=== PATIENT | female | born 1960 | race Caucasian/White ===

== ENCOUNTER 2017-05-23 05:31 | Day surgery (SDC) | payer BC ==
[2017-05-21 10:35] VITALS: BMI 27.1
[2017-05-23] MEDS ORDERED: BUPIVACAINE HCL/PF 0.5% (5MG/ML) 10 ML VIAL IJ ONE (08:10)
[2017-05-23] MEDS ORDERED: BUPIVACAINE HCL/PF 0.5% (5MG/ML) 10 ML VIAL ONE (08:15)
[2017-05-23] MEDS ORDERED: ceFAZolin SODIUM 1 GM VIAL IVPB ONE (08:20)
[2017-05-23] MEDS ORDERED: PROMETHAZINE HCL 25 MG/1 ML VIAL IVPUSH PRN (10:54)
[2017-05-23] MEDS ORDERED: ONDANSETRON 4 MG/2 ML VIAL IVPUSH PRN ×2 (10:54→17:56)
[2017-05-23] MEDS ORDERED: HYDROmorphone HCL CARPU-JECT 2 MG/1 ML DISP.SYRIN ONE (12:19)
[2017-05-23] MEDS: HYDROmorphone HCL CARPU-JECT 1 MG/1 ML DISP.SYRIN IVPUSH PRN ×4 (12:23→13:20)
[2017-05-23] MEDS ORDERED: BISACODYL 10 MG SUPP.RECT RC PRN (12:40)
[2017-05-23] MEDS: LACTATED RINGERS SOLUTION 1,000 ML IV SCH (13:00)
[2017-05-23] MEDS ORDERED: oxyCODONE HCL 5 MG TABLET PO PRN (13:04)
[2017-05-23] MEDS ORDERED: ACETAMINOPHEN 325 MG TABLET (FP) PO PRN (13:04)
--- NOTE | 2017-05-23 13:14 | OP ---
DATE OF OPERATION: 05/23/2017 PREOPERATIVE DIAGNOSES: Postmenopausal bleeding. OPERATION: Laparoscopic robotic total hysterectomy and bilateral salpingectomy. SURGEON: Sharita Amor MD FLAME PLANER: Catrachita Mcintyre DO ANESTHESIA: General. ANESTHESIOLOGIST: Cheli Domingo MD FINDINGS: Uterus about 8 cm in size with cervix located around the external cervical os. INDICATION FOR SURGERY: Patient is a 56-year-old who came in complaining of irregular postmenopausal bleeding. DESCRIPTION OF PROCEDURE: Patient was taken to the operating room, placed in dorsal lithotomy position, prepped and draped in the usual sterile fashion. A timeout was performed in accordance with hospital regulation. Gauthier catheter was inserted into the bladder, and the VCare device was inserted around the cervix and in the endometrium. Attention was then drawn to the umbilicus where an 8-mm umbilical incision was made. Veress needle was inserted into the cavity. Approximately 3-4 L of CO2 were insufflated into the cavity. Veress needle was then removed, and an 8-mm trocar was then inserted. Laparoscope and camera were attached. Deep Trendelenburg was placed. Two trocars were placed on the left side, one parallel to the umbilicus about 10 cm away from the umbilicus and another one in the left upper abdomen, AirSeal cannula. Two trocars were then placed on the right parallel to the umbilicus under direct visualization. The da David robot was side docked to the patient's side. Trocars were then inserted. Laparoscope and camera were attached. Trocars were placed in position, and instruments were then placed under direct proximity to the uterus. Vessel sealer was placed on the left, and EndoShears and tenaculum were placed on the right. After all instruments were placed and steep Trendelenburg had been given , the control of the da David robot was then done at the console. Tenaculum was then used to elevate the uterus, and the utero-ovarian ligament was clamped and cut using vessel sealer. Uterine artery on the right was clamped and cut. Cardinal ligaments and broad ligaments were then identified and clamped and cut. Vesicouterine reflection was then entered, and bladder was bluntly dissected out of the operative field. EndoShears were then used to cut the vagina away from the cervix. Attention was then drawn to the left side where utero-ovarian artery was identified and clamped and cut. Uterine artery was identified and clamped and cut. Vesicouterine reflection had been cut, and bladder was bluntly dissected out of the operative field. Cardinal ligaments and broad ligament were identified and clamped and cut down to the level of the cervix. A cervical myoma was noted on the left side, and the bipolar grasper was then used to coagulate some bleeding which was noted on the left side. Ureters identified and found to have peristalsis. Vagina was then cut away from the cervix using the EndoShears. The uterus and cervix were then removed from the vagina. The 2-0 V-Loc suture was then passed through the vagina, and vaginal cuff was then closed using continuous stitch using 2-0 V-Loc suture. Hemostasis was achieved after cuffs had been sewn. Ureters were both identified and found to have peristalsis. The tubes were grasped and cut using vessel sealer and removed. Hemostasis was achieved. Ovaries were noted to be normal. Some omental adhesions were noted on the left. All instruments were then removed after hemostasis was achieved, after needle had been removed from the abdomen and tubes were removed from the abdomen. CO2 was removed from the belly, and incisions were then closed using 4-0 Biosyn suture in subcuticular fashion. Wound was washed and dressed. Patient tolerated the procedure well. Estimated blood loss was 100 mL. Pack count was noted to be normal. Mariam [id number] MTDD
[2017-05-23 17:58] LABS: MCHC 33.5 g/dl (32.0-36.0); MEAN CELL VOLUME 86.5 fl (80-96); MEAN PLT VOLUME 8.5 fl (7.5-11.1); PLATELET COUNT 228 K/MM3 (134-434); RDW 13.8 % (11.6-15.6); WHITE BLOOD COUNT 17.8 K/mm3 (4.0-10.0)
[2017-05-23] MEDS: CEFAZOLIN 2 GM/D5W 50 ML IVPB SCH (18:26)
[2017-05-23 18:38] LABS: ANION GAP 14 (8-16); CALCIUM 8.8 mg/dL (8.5-10.1); CO2 24 mmol/L (21-32); GLUCOSE,RANDOM 216 mg/dL (74-106)
[2017-05-23] MEDS ORDERED: ONDANSETRON 4 MG/2 ML VIAL IVPB PRN (18:42)
[2017-05-23] MEDS: IBUPROFEN 800 MG/8 ML IJ IVPB PRN (20:01)
[2017-05-24] MEDS: CEFAZOLIN 2 GM/D5W 50 ML IVPB SCH (01:47)
[2017-05-24 07:35] LABS: MCH 29.5 pg (25.7-33.7); MCHC 34.7 g/dl (32.0-36.0); MEAN CELL VOLUME 84.8 fl (80-96); MEAN PLT VOLUME 8.3 fl (7.5-11.1); PLATELET COUNT 183 K/MM3 (134-434); WHITE BLOOD COUNT 15.6 K/mm3 (4.0-10.0)
[2017-05-24 07:57] LABS: ANION GAP 10 (8-16); CALCIUM 8.4 mg/dL (8.5-10.1); CO2 27 mmol/L (21-32); CREATININE 1.1 mg/dL (0.55-1.02); GLUCOSE,RANDOM 114 mg/dL (74-106)
[2017-05-24] MEDS: IBUPROFEN 800 MG/8 ML IJ IVPB PRN (08:22)
--- NOTE | 2017-05-24 09:34 | PN ---
Progress Note, Physician Chief Complaint: Pt seen/evaluated and doing well. Pain controlled with medications. Gauthier catheter draining clear yellow urine. Tolerating regular diet. Denies CP/SOB/F /C/MULTANI. No complaints today. Had pink tinged urine overnight, Cr 1.1 this a.m. - Current Medication List Current Medications: Active Medications Acetaminophen (Tylenol -) 650 mg PO Q6H PRN PRN Reason: PAIN LEVEL 6-10 Bisacodyl (Dulcolax Suppository -) 10 mg RC PRN PRN PRN Reason: CONSTIPATION Enoxaparin Sodium (Lovenox -) 40 mg SQ DAILY [facility] Fentanyl (Sublimaze Injection -) 25 mcg IVPUSH [id number] PRN PRN Reason: PAIN Stop: 05/26/17 10:55 Hydromorphone HCl (Dilaudid Injection -) 0.5 mg IVPUSH [id number] PRN PRN Reason: PAIN Stop: 05/26/17 10:55 Last Admin: 05/23/17 13:20 Dose: 0.5 mg Hydromorphone HCl (Dilaudid -) 4 mg PO Q4H PRN PRN Reason: PAIN Lactated Ringer's (Lactated Ringers Solution) 1,000 mls @ 125 mls/hr IV ASDIR BATSHEVA Last Admin: 05/23/17 13:00 Dose: 200 mls Ibuprofen (Caldolor Injection -) 800 mg IVPB Q6H PRN PRN Reason: FEVER Last Admin: 05/24/17 08:22 Dose: 800 mg Oxycodone HCl (Roxicodone -) 10 mg PO Q6H PRN PRN Reason: PAIN LEVEL 6-10 - Objective Vital Signs: Vital Signs Temperature 98.2 F 05/24/17 06:00 Pulse Rate 84 05/24/17 06:00 Respiratory Rate 18 05/24/17 06:00 Blood Pressure 92/50 05/24/17 06:00 O2 Sat by Pulse Oximetry (%) 95 05/23/17 15:20 Constitutional: Yes: Well Nourished, No Distress, Calm Eyes: Yes: Conjunctiva Clear, EOM Intact HENT: Yes: Atraumatic, Normocephalic Neck: Yes: Supple, Trachea Midline Cardiovascular: Yes: Regular Rate and Rhythm Respiratory: Yes: Regular, CTA Bilaterally Gastrointestinal: Yes: Normal Bowel Sounds, Soft. No: Palpable Mass, Tenderness Genitourinary: Yes: Gauthier Present. No: Vaginal Bleeding Extremities: Yes: WNL Edema: No Wound/Incision: Yes: Clean/Dry, Well Approximated Neurological: Yes: Alert, Oriented Psychiatric: Yes: Alert, Oriented Labs: CBC, BMP 05/24/17 06:00 05/24/17 06:00 Problem List - Problems (1) S/P robot-assisted surgical procedure Code(s): Z98.890 - OTHER SPECIFIED POSTPROCEDURAL STATES (2) History of robot-assisted laparoscopic hysterectomy Code(s): Z90.710 - ACQUIRED ABSENCE OF BOTH CERVIX AND UTERUS Assessment/Plan 56 y/o POD#1 s/p Robotic assisted TLH and b/l salpingectomy - AFVSS - continue PO pain meds - Pt eating regualr diet - will restart home DM meds - DM/HTN - to restart home meds today, BP stable, BGM elevated overnight, will continue to monitor - Pt with hematuria and elevated Cr last night, repeat Cr today. If pt able to tolerate diet, void, pass flatus and Cr stable will d/c home
[2017-05-24] MEDS ORDERED: ENOXAPARIN NA (PORCINE) 40 MG/0.4 ML DISP.SYRIN SQ SCH (10:00)
[2017-05-24] MEDS ORDERED: PATIENT'S OWN MEDICATION (NON-FORMULARY) (Linagliptin [Tradjenta] 5 MG) PO SCH (10:00)
[2017-05-24] MEDS: LACTATED RINGERS SOLUTION 1,000 ML IV SCH (10:50)
[2017-05-24] MEDS ORDERED: sitaGLIPtin PHOSPHATE 100 MG TABLET (FP) PO SCH (11:00)
--- NOTE | 2017-05-24 11:44 | PN ---
Progress Note (short form) - Note Progress Note: Anesthesia POD#1 S/P Robotic MAR under GA vss,no N/V, pain is under control. Eating well. No complications to anesthesia seen. Melanie Taylor MD
[2017-05-24 11:54] VITALS: BP 112/53; PULSE 87; TEMP 98.8
[2017-05-24 12:44] LABS: ANION GAP 11 (8-16); CALCIUM 8.9 mg/dL (8.5-10.1); CO2 27 mmol/L (21-32); CREATININE 1.4 mg/dL (0.55-1.02); GLUCOSE,RANDOM 163 mg/dL (74-106)
--- NOTE | 2017-05-24 13:37 | PATH ---
Surgical Pathology Report Patient Name: STANLEY SHEN [facility]. Rec. #: [id number] /Age/Gender: 1960 (Age: 56) / F Account: [id number] Location: AMBULATORY SURG Taken: 05/23/2017 Received: 05/23/2017 Reported: 05/24/2017 Physicians: Sharita Amor M.D. Specimen(s) Received A: UTERUS AND CERVIX B: LEFT FALLOPIAN TUBE C: RIGHT FALLOPIAN TUBE Clinical History Irregular bleeding Final Diagnosis A. UTERUS AND CERVIX, HYSTERECTOMY: UTERUS AND CERVIX, 58 GRAMS, WITH 3 LEIOMYOMATA, SUPERFICIAL ADENOMYOSIS, UTERINE SEROSAL ENDOMETRIOSIS, INACTIVE ENDOMETRIUM, AND CERVIX WITH CHRONIC INFLAMMATION. B. LEFT FALLOPIAN TUBE, SALPINGECTOMY: BENIGN FALLOPIAN TUBE INCLUDING FIMBRIATED END, WITH BENIGN SEROUS PARATUBAL CYST. C. RIGHT FALLOPIAN TUBE, SALPINGECTOMY: BENIGN FALLOPIAN TUBE INCLUDING FIMBRIATED END. Electronically Signed Addy Gibson M.D. Gross Description A. Received in formalin labeled "uterus and cervix," is a 58 g uterus with an attached cervix and no attached adnexa. The specimen measures 7.8 cm from superior to inferior, 4.4 cm from left to right and 3.0 cm from anterior to posterior. The serosa is lundberg-pink and smooth. The attached cervix measures 3 cm in length and 2.8 cm in diameter. The ectocervix is pink-lundberg, smooth and glistening. The endocervix is unremarkable. The endometrial cavity measures 3.5 cm in length and 2 cm from cornu to cornu. The there is a bulging submucosal nodule present at the anterior fundus, measuring 1.4 cm in greatest dimension. The endometrium is lundberg-red and averages 0.1 cm in thickness. The myometrium displays 2 intramural nodules measuring 0.4 and 1.6 cm in greatest dimension. The cut surface of the submucosal and intramural nodules is lundberg, firm to rubbery and displays whorled architecture. No areas of hemorrhage or necrosis are identified. The remaining myometrium is lundberg-pink and averages 1.3 cm in thickness. Stock Letterer sections are submitted in 7 cassettes as follows: 1-anterior cervix; 2-posterior cervix; 3-anterior endomyometrium; 5-3-eoltszohp endomyometrium; 6-submucosal nodule; 7-intramural nodules. B. Received in formalin labeled "left tube," is a 3 cm in length fimbriated fallopian tube. The outer surface is lundberg-pink with a focal 0.6 cm greatest dimension paratubal cyst attached. Sectioning reveals an unremarkable lumen. Stock Letterer sections are submitted in 2 cassettes as follows: 1-fimbria; 2-cross sections of fallopian tube and paratubal cyst. C. Received in formalin labeled "right tube," is a 3 cm in length fimbriated fallopian tube. The outer surface is lundberg-pink and smooth. Sectioning reveals an unremarkable lumen. Stock Letterer sections are submitted in 2 cassettes as follows: 1-fimbria; 2-cross sections of fallopian tube. 05/23/2017 [facility] with [facility]05/23/2017
[2017-05-24] MEDS ORDERED: ATORVASTATIN CA 20 MG TABLET (FP) PO SCH (22:00)
[2017-05-24] MEDS ORDERED: LISINOPRIL 5 MG TABLET (FP) PO SCH (22:00)
== END 2017-05-24 13:03 | disposition home or self-care (01) ==
LOC: JASUSAT 05:31 → J3W 14:55 → JASUSAT 05-24 13:03
PROVIDERS: ATTEND Obstetrics & Gynecology
PROC: 0UT7FZZ Resection of Bilateral Fallopian Tubes, Via Natural or Artificial Opening With Percutaneous Endoscopic Assistance (ICD-10-PCS; 2017-05-23)
PROC: 8E0W4CZ Robotic Assisted Procedure of Trunk Region, Percutaneous Endoscopic Approach (ICD-10-PCS; 2017-05-23)
PROC: 0UT9FZZ Resection of Uterus, Via Natural or Artificial Opening With Percutaneous Endoscopic Assistance (ICD-10-PCS; principal; 2017-05-23 08:00)
PROC: 0UTC7ZZ Resection of Cervix, Via Natural or Artificial Opening (ICD-10-PCS; 2017-05-23 08:00)
DX: N95.0 Postmenopausal bleeding (principal); N80.0 Endometriosis of uterus; D25.9 Leiomyoma of uterus, unspecified
CPT/HCPCS: 58552; S2900; 36415; 80048; 85027; 86850; 86900; 86901; 88302-TC; 88307-TC; 94010; 94760

== ENCOUNTER 2017-05-28 16:14 | Inpatient (IN) | payer BC ==
[2017-05-28 16:23] VITALS: BMI 23.9
--- NOTE | 2017-05-28 16:50 | PDOC ---
Attending Attestation - Resident Resident Name: Florentino Kay - ED Attending Attestation I have performed the following: I have examined & evaluated the patient, The case was reviewed & discussed with the resident, I agree w/resident's findings & plan, Exceptions are as noted - HPI HPI: 05/28/17 16:48 flank pain, ureter tied off during hysterectomy - Physicial Exam PE: 05/28/17 16:49Appears Uncomfortable - Medical Decision Making 05/28/17 16:[address] Kay Assessment and Plan
--- NOTE | 2017-05-28 17:15 | PDOC ---
History of Present Illness - General Chief Complaint: Back Pain Stated Complaint: POST-OP PAIN Time Seen by Provider: 05/28/17 16:35 History Source: Patient Exam Limitations: No Limitations - History of Present Illness Initial Comments: 05/28/17 17:12 Patient is a 56F with history of DM, HTN and HLD is here today for a post-op complication. The patient had a hysterectomy and experienced left sided pain afterwards. A CT scan done today as an outpatient shows left sided hydronephrosis with an obstruction in the ureter. Patient says that she has had some left sided flank, but this has resolved with taking oxycodone. She denies fevers, chills, nausea and vomiting. She denies chest pain, shortness of breath , abdominal pain and cough. Past History - Past Medical History Allergies/Adverse Reactions: Allergies Allergy/AdvReac Type Severity Reaction Status Date / Time No Known Drug Allergies Allergy Verified 05/28/17 18:46 Home Medications: Ambulatory Orders Atorvastatin Ca [Lipitor] 20 mg PO HS 05/15/17 Linagliptin [Tradjenta] 5 mg PO DAILY 05/15/17 Lisinopril 5 mg PO HS 05/15/17 Metformin HCl [Metformin HCl ER] 1,000 mg PO BID 05/15/17 Oxycodone HCl/Acetaminophen [Percocet 5-325 mg Tablet -] 1 tab PO Q4H #20 tablet [facility] 6 05/23/17 Ibuprofen [Motrin -] 600 mg PO QID PRN #28 tablet 05/24/17 Oxycodone HCl/Acetaminophen [Percocet 5-325 mg Tablet -] 1 tab PO Q4H #20 tablet [facility] 6 05/24/17 Anemia: No Asthma: No Cancer: No Cardiac Disorders: No CVA: No COPD: No CHF: No Dementia: No Diabetes: Yes GI Disorders: No Disorders: No HTN: Yes Hypercholesterolemia: Yes Liver Disease: No Seizures: No Thyroid Disease: No - Immunization History Immunization Up to Date: Yes - Suicide/Smoking/Psychosocial Hx Smoking History: Never smoked Have you smoked in the past 12 months: No Information on smoking cessation initiated: No Hx Alcohol Use: No Drug/Substance Use Hx: No Substance Use Type: Alcohol Hx Substance Use Treatment: No Review of Systems - Review of Systems Comments:: 05/28/17 17:17 GENERAL/CONSTITUTIONAL: No fever or chills. No weakness. HEAD, EYES, EARS, NOSE AND THROAT: No change in vision. No sore throat. CARDIOVASCULAR: No chest pain or shortness of breath RESPIRATORY: No cough, wheezing, or hemoptysis. GASTROINTESTINAL: No nausea, vomiting, diarrhea or constipation. GENITOURINARY: No dysuria, frequency, or change in urination. MUSCULOSKELETAL: No joint or muscle swelling or pain. No neck or back pain. SKIN: No rash NEUROLOGIC: No headache, vertigo, loss of consciousness, or change in strength/ sensation. ALLERGIC/IMMUNOLOGIC: No hives or skin allergy. *Physical Exam - Vital Signs Last Vital Signs Temp Pulse Resp BP Pulse Ox 98.0 F 85 17 130/69 100 05/28/17 16:18 05/28/17 16:18 05/28/17 16:18 05/28/17 16:18 05/28/17 16:18 - Physical Exam Comments: 05/28/17 17:17 GENERAL: Awake, alert, and fully oriented, in no acute distress HEAD: No signs of trauma, normocephalic, atraumatic EYES: PERRLA, EOMI, sclera anicteric, conjunctiva clear ENT: Auricles normal inspection, hearing grossly normal, nares patent, oropharynx clear without exudates. Moist mucosa NECK: Normal ROM, supple, no lymphadenopathy, JVD, or masses LUNGS: No distress, speaks full sentences, clear to auscultation bilaterally HEART: Regular rate and rhythm, normal S1 and S2, no murmurs, rubs or gallops, peripheral pulses normal and equal bilaterally. ABDOMEN: Soft, left sided flank tenderness, normoactive bowel sounds. No guarding, no rebound. No masses EXTREMITIES: Normal inspection, Normal range of motion, no edema. No clubbing or cyanosis. NEUROLOGICAL: Cranial nerves II through XII grossly intact. Normal speech, normal gait, no focal sensorimotor deficits SKIN: Warm, Dry, normal turgor, no rashes or lesions noted. ED Treatment Course - LABORATORY CBC & Chemistry Diagram: 05/28/17 18:00 05/28/17 18:00 - RADIOLOGY Radiology Studies Ordered: Category Date Time Status CHEST PA & LAT [RAD] Stat Radiology 05/28/17 16:57 Ordered Medical Decision Making - Medical Decision Making 05/28/17 17:18 Patient is 56F with history of DM, HTN, and HLD here today with a ureteral obstruction secondary to a procedure. Will do pre-op workup and admit to obgyn. Procedure planned for today. 05/28/17 19:20 Laboratory Tests 05/28/17 05/28/17 18:00 18:00 WBC 10.9 H D Hgb 13.2 D Hct 37.3 D Plt Count 255 D BUN 16 Creatinine 1.2 H CBC shows small white count. Cr elevated to 1.2. Patient discussed with Dr Amor, admitted to Med/Surg *DC/Admit/Observation/Transfer Diagnosis at time of Disposition: Ureteral obstruction - Discharge Dispostion Condition at time of disposition: Stable Admit: Yes
[2017-05-28 18:19] LABS: URINE APPEARANCE CLEAR; URINE BILIRUBIN NEGATIVE (NEGATIVE); URINE BLOOD NEGATIVE (NEGATIVE); URINE COLOR LTYELLOW; URINE GLUCOSE (UA) 3+ (NEGATIVE); URINE KETONE NEGATIVE (NEGATIVE); URINE LEUK ESTERASE NEGATIVE (NEGATIVE); URINE NITRITE NEGATIVE (NEGATIVE); URINE PROTEIN NEGATIVE (NEGATIVE); URINE UROBILINOGEN NEGATIVE mg/dL (0.2-1.0)
[2017-05-28 18:22] LABS: MCH 29.9 pg (25.7-33.7); MCHC 35.3 g/dl (32.0-36.0); MEAN CELL VOLUME 84.8 fl (80-96); MEAN PLT VOLUME 7.9 fl (7.5-11.1); PLATELET COUNT 255 K/MM3 (134-434); RDW 13.5 % (11.6-15.6); WHITE BLOOD COUNT 10.9 K/mm3 (4.0-10.0)
[2017-05-28 18:35] LABS: INR 1.09 (0.82-1.09)
[2017-05-28 18:44] LABS: ANION GAP 9 (8-16); BILIRUBIN,TOTAL 0.6 mg/dL (0.2-1.0); CALCIUM 9.6 mg/dL (8.5-10.1); CO2 29 mmol/L (21-32); CREATININE 1.2 mg/dL (0.55-1.02); GLUCOSE,RANDOM 192 mg/dL (74-106); SGOT/AST 10 U/L (15-37); SGPT/ALT 17 U/L (12-78); TOT PROT 7.6 g/dl (6.4-8.2)
[2017-05-28 18:45] LABS: ALK PHOS 84 U/L (45-117)
[2017-05-28] MEDS: HYDROmorphone HCL CARPU-JECT 2 MG/1 ML DISP.SYRIN IVPB SCH (20:30)
[2017-05-29] MEDS: HYDROmorphone HCL CARPU-JECT 2 MG/1 ML DISP.SYRIN IVPB SCH ×3 (00:31→07:45)
--- NOTE | 2017-05-29 13:48 | EKG ---
Test Reason : Blood Pressure : / mmHG Vent. Rate : 074 BPM Atrial Rate : 074 BPM P-R Int : 148 ms QRS Dur : 070 ms QT Int : 390 ms P-R-T Axes : 066 011 025 degrees QTc Int : 432 ms NORMAL SINUS RHYTHM NORMAL ECG NO PREVIOUS ECGS AVAILABLE Confirmed by NAYLA MILLER, SARA ([id number]) on 05/29/2017 1:48:36 PM Referred By: Confirmed By:SARA WINSLOW MD
[2017-05-29 15:10] VITALS: BP 129/77; PULSE 79; TEMP 98.4
--- NOTE | 2017-05-29 16:45 | HP ---
[facility] - Chief Complaint Chief Complaint: POstop ureter obstuction History Source: Patient - Past Medical History Allergies/Adverse Reactions: Allergies Allergy/AdvReac Type Severity Reaction Status Date / Time No Known Drug Allergies Allergy Verified 05/28/17 18:46 ...: No - Current Medications Current Medications: Home Medications Medication Instructions Recorded Atorvastatin Ca [Lipitor] 20 mg PO HS 05/15/17 Linagliptin [Tradjenta] 5 mg PO DAILY 05/15/17 Lisinopril 5 mg PO HS 05/15/17 Metformin HCl [Metformin HCl ER] 1,000 mg PO BID 05/15/17 Oxycodone HCl/Acetaminophen 1 tab PO Q4H #20 tablet [facility] 6 05/23/17 [Percocet 5-325 mg Tablet -] Ibuprofen [Motrin -] 600 mg PO QID PRN #28 tablet 05/24/17 Oxycodone HCl/Acetaminophen 1 tab PO Q4H #20 tablet [facility] 6 05/24/17 [Percocet 5-325 mg Tablet -] Satellite Physical Exam - Physical Examination Vital Signs: Vital Signs Period Temp Pulse Resp BP Sys/Eugene Pulse Ox Last 24 Hr 98.1 F-99.1 F 77-105 15-20 111-147/61-80 100-100 General Appearance: Well Nourished, Well Developed Lung: Clear to auscultation Heart: Regular rate & rhythm Breasts: Soft, Non-Tender Abdomen: Soft, No tenderness Extremities: No edema Neurological: Intact, Alert, Oriented Satellite Impression/Plan - Impression/Plan Impression: ureter obstruction on left Operative Procedure: Nephrostomy tube. reimplantation on 05/31/17. [place] home. return tomorrow Date to be Performed: 05/29/17
== END 2017-05-29 18:27 | disposition home or self-care (01) | DRG 699 ==
LOC: JER 16:14 → JERBED 19:12 → J3W 23:44 → J4W 05-29 11:30
PROVIDERS: ADMIT Obstetrics & Gynecology; ATTEND Obstetrics & Gynecology
PROC: 0T9130Z Drainage of Left Kidney with Drainage Device, Percutaneous Approach (ICD-10-PCS; principal; 2017-05-29)
DX: N99.89 Other postprocedural complications and disorders of genitourinary system (principal); N13.1 Hydronephrosis with ureteral stricture, not elsewhere classified; Y83.8 Other surgical procedures as the cause of abnormal reaction of the patient, or of later complication, without mention of misadventure at the time of the procedure
CPT/HCPCS: 36415; 50432; 71020-TC; 76000-TC; 76098-TC; 76998-TC; 80053; 81003; 85027; 85610; 86850; 86900; 86901; 87086; 87899; 93005; 93010; 99285-25; A4358; C1729; C1769

== ENCOUNTER 2017-05-30 14:30 | Inpatient (IN) | payer BC ==
[2017-05-30 14:58] LABS: MCH 28.9 pg (25.7-33.7); MCHC 33.7 g/dl (32.0-36.0); MEAN CELL VOLUME 85.6 fl (80-96); MEAN PLT VOLUME 7.8 fl (7.5-11.1); PLATELET COUNT 330 K/MM3 (134-434); RDW 13.6 % (11.6-15.6)
[2017-05-30 14:59] VITALS: BMI 23.9
[2017-05-30 15:23] LABS: ALK PHOS 91 U/L (45-117); ANION GAP 11 (8-16); BILIRUBIN,TOTAL 0.4 mg/dL (0.2-1.0); CO2 27 mmol/L (21-32); CREATININE 0.8 mg/dL (0.55-1.02); GLUCOSE,RANDOM 127 mg/dL (74-106); SGOT/AST 14 U/L (15-37); SGPT/ALT 20 U/L (12-78); TOT PROT 8.1 g/dl (6.4-8.2)
[2017-05-30] MEDS ORDERED: PROPOFOL 20 ML ONE ×3 (16:43→16:45)
[2017-05-30] MEDS ORDERED: SUCCINYLCHOLINE CHLORIDE 200 MG/10 ML VIAL ONE (16:43)
[2017-05-30] MEDS ORDERED: ROCURONIUM BROMIDE 50 MG/5 ML VIAL ONE (16:44)
[2017-05-30] MEDS ORDERED: DESFLURANE GAS 240 ML BOTTLE IH ONE (16:46)
[2017-05-30] MEDS ORDERED: ceFAZolin SODIUM 1 GM VIAL IVPB ONE (17:58)
[2017-05-30] MEDS ORDERED: ceFAZolin SODIUM 1 GM VIAL ONE (18:04)
[2017-05-30] MEDS ORDERED: DEXAMETHASONE SOD PHOSPHATE 4 MG/1 ML VIAL ONE (18:09)
[2017-05-30] MEDS ORDERED: ACETAMINOPHEN INJECTION 100 ML IVPB ONE (18:17)
[2017-05-30] MEDS ORDERED: GLYCOPYRROLATE 0.2 MG/1 ML VIAL ONE (19:28)
[2017-05-30] MEDS ORDERED: NEOSTIGMINE METHYLSULFATE 0.5 MG/ML - 10 ML MDV ONE (19:28)
[2017-05-30] MEDS ORDERED: HYDROmorphone HCL/PF 1 MG/ML VIAL (FOR PYXIS CHARGING ONLY) ONE (19:37)
[2017-05-30] MEDS ORDERED: ACETAMINOPHEN 1000 MG/100 ML VIAL (NON FORMULARY) IVPB ONE (19:57)
[2017-05-30] MEDS ORDERED: HYDROmorphone HCL CARPU-JECT 2 MG/1 ML DISP.SYRIN IM PRN (19:58)
[2017-05-30] MEDS ORDERED: DOCUSATE SODIUM 100 MG CAPSULE (FP) PO PRN (20:11)
[2017-05-30] MEDS ORDERED: ONDANSETRON 4 MG/2 ML VIAL IVPUSH PRN ×2 (20:13)
[2017-05-30] MEDS ORDERED: PROMETHAZINE HCL 25 MG/1 ML VIAL IVPUSH PRN (20:13)
[2017-05-30] MEDS ORDERED: PROMETHAZINE HCL 25 MG/1 ML VIAL IVPB PRN (20:13)
[2017-05-30] MEDS ORDERED: LACTATED RINGERS SOLUTION 1,000 ML IV SCH (20:15)
[2017-05-30] MEDS ORDERED: HYDROmorphone *PCA* 10MG/50ML DISP.SYRIN PCA SCH (20:15)
[2017-05-30] MEDS ORDERED: HYDROmorphone *PCA* 10MG/50ML DISP.SYRIN PCA ONE (20:16)
[2017-05-30] MEDS: DEXTROSE 5%-0.45% SALINE 1,000 ML IV SCH (20:30)
[2017-05-30 21:11] LABS: BASOPHIL 0.1 % (0-2.0); EOSINOPHIL 0.4 % (0-4.5); MCH 29.3 pg (25.7-33.7); MCHC 34.4 g/dl (32.0-36.0); MEAN CELL VOLUME 85.4 fl (80-96); MEAN PLT VOLUME 7.7 fl (7.5-11.1); NEUTROPHILS 84.4 % (42.8-82.8); PLATELET COUNT 280 K/MM3 (134-434); RDW 13.6 % (11.6-15.6); WHITE BLOOD COUNT 16.7 K/mm3 (4.0-10.0)
[2017-05-30 22:05] LABS: ANION GAP 7 (8-16); CALCIUM 8.2 mg/dL (8.5-10.1); CO2 27 mmol/L (21-32); CREATININE 0.7 mg/dL (0.55-1.02); GLUCOSE,RANDOM 243 mg/dL (74-106)
[2017-05-31] MEDS ORDERED: ceFAZolin SODIUM 1 GM VIAL ONE ×4 (00:28→20:08)
[2017-05-31] MEDS ORDERED: DEXTROSE 5%-WATER - 50 ML IVPB ONE ×4 (00:28→20:09)
[2017-05-31] MEDS: CEFAZOLIN 1 GM in DEXTROSE 5%-WATER - 50 ML IVPB SCH ×3 (01:56→17:17)
[2017-05-31] MEDS: DEXTROSE 5%-0.45% SALINE 1,000 ML IV SCH ×2 (01:59→20:05)
--- NOTE | 2017-05-31 06:45 | HP ---
[facility] - Chief Complaint Chief Complaint: Ureter obstruction on left History of Present Illness: 56yo P1 sp hysterectomy on 05/23 with post op complication of left ureter obstruction. Pt admitted for repair with nephrostomy tube History Source: Patient Limitations to Obtaining History: No Limitations - Past Medical History Allergies/Adverse Reactions: Allergies Allergy/AdvReac Type Severity Reaction Status Date / Time No Known Drug Allergies Allergy Verified 05/30/17 15:12 Gastrointestinal: Yes: Other (Cholesterol) ...: No Endocrine: Yes: Diabetes Mellitus - Current Medications Current Medications: Home Medications Medication Instructions Recorded Atorvastatin Ca [Lipitor] 20 mg PO HS 05/15/17 Linagliptin [Tradjenta] 5 mg PO DAILY 05/15/17 Lisinopril 5 mg PO HS 05/15/17 Metformin HCl [Metformin HCl ER] 1,000 mg PO BID 05/15/17 Oxycodone HCl/Acetaminophen 1 tab PO Q4H #20 tablet [facility] 6 05/23/17 [Percocet 5-325 mg Tablet -] Ibuprofen [Motrin -] 600 mg PO QID PRN #28 tablet 05/24/17 Satellite Physical Exam - Physical Examination Vital Signs: Vital Signs Period Temp Pulse Resp BP Sys/Eugene Pulse Ox Last 24 Hr 97.8 F-99.3 F 85-104 14-20 83-131/50-85 96-100 General Appearance: Well Nourished, Well Developed ENT: Clear Lung: Clear to auscultation Heart: Regular rate & rhythm Breasts: Soft, Non-Tender, No masses bilaterally Abdomen: Soft, No tenderness Extremities: No edema Neurological: Intact, Alert, Oriented Satellite Impression/Plan - Impression/Plan Impression: Left ureter obstuction Operative Procedure: Exp Lap. Ureteral repair on left Date to be Performed: 05/30/17
[2017-05-31 07:13] LABS: BASOPHIL 0.2 % (0-2.0); EOSINOPHIL 0.1 % (0-4.5); MCH 29.2 pg (25.7-33.7); MCHC 34.4 g/dl (32.0-36.0); MEAN CELL VOLUME 84.8 fl (80-96); NEUTROPHILS 68.7 % (42.8-82.8); PLATELET COUNT 289 K/MM3 (134-434); RDW 13.4 % (11.6-15.6); WHITE BLOOD COUNT 10.5 K/mm3 (4.0-10.0)
[2017-05-31 07:37] LABS: ANION GAP 7 (8-16); CALCIUM 8.1 mg/dL (8.5-10.1); CO2 29 mmol/L (21-32); CREATININE 0.8 mg/dL (0.55-1.02); GLUCOSE,RANDOM 266 mg/dL (74-106)
--- NOTE | 2017-05-31 07:37 | OP ---
DATE OF OPERATION: 05/30/2017 SURGEON: Florentino Landaverde M.D. BETTING AGENCY MANAGER: Sharita Amor M.D. ANESTHESIA: General. ANESTHESIOLOGIST: Harvey Galicia MD PREOPERATIVE DIAGNOSIS: Obstructed left ureter. POSTOPERATIVE DIAGNOSIS: Obstructed left ureter. PROCEDURE PERFORMED: Exploratory laparotomy, left ureteroneocystostomy, internal retrograde stent placement. ESTIMATED BLOOD LOSS: 750. FINDINGS: Obstructed left ureter at the bladder. DRAIN: A Gauthier catheter and a 6 x 24 JJ ureteral stent on the left. INDICATIONS: The patient is a 56-year-old female who underwent a robotic hysterectomy 1 week ago. She developed left-sided flank pain and a rising creatinine postoperatively. CT scan revealed an obstructed left side. She underwent a left nephrostomy tube to drain her left kidney, to relieve her pain. During that procedure, a wire was passed down, which got caught up in the distal ureter. That was then removed. She comes to the OR for repair of the left ureter. DESCRIPTION OF PROCEDURE: The patient was brought to the OR and placed on the table in the supine position. She was given general anesthesia and IV antibiotics. A time-out was performed. The abdomen was prepped and draped. A Gauthier catheter was placed. A Pfannenstiel incision was made. The underlying fascia was opened. The rectus muscles were retracted laterally. The midline was opened. The bladder was identified, and the left perivesical space was developed. The peritoneum was opened and the bowel was retracted, revealing the area where the ureter was involved in the previous operation. Ureteral length was adequate to reinsert the ureter without a psoas hitch. There was no tension on the ureter for the healthy portion of its length. The bladder was filled and clamped. The ureter was then brought down to the bladder with no tension. The ureter was transected just above the area where it had been tied off previously. The lumen was identified and opened with scissors. An extravesical repair was then undertaken. An incision was made in the bladder, and bladder mucosa was identified. Anastomosis was performed using 4-0 chromic suture, sewing the ureteral lumen to the bladder. During the process of this anastomosis, a 6 x 24 JJ ureteral stent was placed retrograde over a wire, and then the distal loop was placed in the bladder. The anastomosis was completed. Sutures were used to reinforce the bladder closure and the ureteral positioning. Good hemostasis was achieved at this time. A INÉS drain was left in place. The perineum was closed. The rectus muscles were then reapposed. The fascia was closed in 2 layers. The wound was dressed, and the patient was woken up. Mariam [id number]
--- NOTE | 2017-05-31 09:15 | PN ---
Progress Note (short form) - Note Progress Note: afebrile VSS Hct 28 incisional pain no back pain INÉS 30 doyle clear tolerating Imp- S/P ureteral reimplant PCN removal today advance diet follow HCT
--- NOTE | 2017-05-31 14:38 | PN ---
Progress Note (SOAP) - Subjective Chief Complaint: Pt doing well Pt with decrease pain pt getting nephrostomy tube out today clear urine from doyle not much drainage from INÉS - Current Medications Current Medications: Active Medications Diphenhydramine HCl (Benadryl Injection -) 12.5 mg IVPUSH ONCE PRN PRN Reason: FOR ITCHING Docusate Sodium (Colace -) 100 mg PO TID PRN PRN Reason: CONSTIPATION Hydromorphone HCl (Dilaudid Injection -) 2 mg IM Q4H PRN PRN Reason: PAIN Hydromorphone HCl (Dilaudid Field Horticultural Specialty Grower -) 0 mg PRODUCTION OPERATIONS ENGINEER PRODUCTION OPERATIONS ENGINEER BATSHEVA PRN Reason: Protocol Stop: 06/06/17 20:14 Last Admin: 05/31/17 07:46 Dose: Not Given Cefazolin Sodium 1 gm/ (Dextrose) 50 mls @ 100 mls/hr IVPB Q8H-IV BATSHEVA Last Admin: 05/31/17 09:19 Dose: 100 mls/hr Dextrose/Sodium Chloride (D5-1/2ns -) 1,000 mls @ 125 mls/hr IV ASDIR BATSHEVA Last Admin: 05/31/17 01:59 Dose: 125 mls/hr Promethazine HCl (Phenergan Injection -) 12.5 mg IVPB Q6H PRN PRN Reason: NAUSEA AND/OR VOMITING Last Admin: 05/31/17 13:08 Dose: 12.5 mg - Objective Vital Signs: Vital Signs Temperature 98 F 05/31/17 08:43 Pulse Rate 93 H 05/31/17 10:36 Respiratory Rate 18 05/31/17 09:20 Blood Pressure 91/47 05/31/17 09:20 O2 Sat by Pulse Oximetry (%) 96 05/31/17 10:36 Constitutional: Yes: Well Nourished, No Distress Cardiovascular: Yes: WNL Respiratory: Yes: WNL Gastrointestinal: Yes: WNL, Normal Bowel Sounds, Soft (INÉS drain removed) Musculoskeletal: Yes: WNL Extremities: Yes: WNL Labs Lab Results: CBC, BMP 05/31/17 07:02 05/31/17 07:02 Assessment/Plan SP left ureter reimplant repair POD 1 elevated glucose level 270 Plan Hospitalist consult DC nephrostomy tube by IR cbc in am
--- NOTE | 2017-05-31 14:59 | PN ---
Progress Note (short form) - Note Progress Note: 56F POD1 s/p ex-lap ureteronephrostomy and reimplantation of left ureter under GA-ETT. Pt is doing well, states pain is well controlled, is tolerating oral intake. Dilaudid IV OPERATIONS COORDINATOR d/c'd and switched to oral pain medication. Pt does not report any anesthetic complications.
[2017-05-31] MEDS ORDERED: IBUPROFEN 600 MG TABLET (FP) PO PRN (15:35)
--- NOTE | 2017-05-31 15:52 | CONSULT ---
Consultation: REQUESTING PROVIDER: Hospitalist CONSULT REQUEST: We have been asked to medically evaluate this patient for ( specify). Elevated blood sugars at 270 HISTORY OF PRESENT ILLNESS: History was limited from patient because she had just returned from having her nephrostomy tube removed and was in pain. The patient is a 56 year old female with PMHx of DM, HTN, HLD, s/p laparoscopic hysterectomy and bilat salpingectomy on 05/23 who came in following for ureteronephrostomy and was found to have hypergycemia of 270 today. The patient had total hysterectomy on 05/23 and was discharged on 05/24. She noticed severe pain from her left flank and called her closing coordinator. She was referred by her closing coordinator's office to see a urologist on 05/27 as a result of a "complication". She took oral contrast to get a CT scan done on 05/28 and was found to need exploratory laparotomy. She was then told to go to the ER on 05/29 , where the nephrostomy tube was inserted. She was admitted and had ureteronephrostomy done on 05/30. This afternoon, the nephrostomy tube was removed from her left flank. Patient had been on glucophage 1000mg bid and tradjenta 5mg daily before she received oral contrast for CT scan on 05/28. She was advised to be off her oral hypoglycemics for at least 48hrs following the contrast ingestion to minimize side effects. Patient has continued her normal diet, and received dextrose water while being off her DM medications since . This morning her glucose was found to be 270. There was no fever/vomiting/no seizures/change in mental status or weakness of any part of the body. No shortness of breath or cough. No polydypsia. Patient is on a doyle catheter so could not assess for polyuria. Patient nausea today and reduced appetite but no vomiting. REVIEW OF SYSTEMS: As documented above CONSTITUTIONAL: Absent: fever, chills, diaphoresis, generalized weakness, malaise, loss of appetite, weight change HEENT: Absent: rhinorrhea, nasal congestion, throat pain, throat swelling, difficulty swallowing, mouth swelling, ear pain, eye pain, visual changes CARDIOVASCULAR: Absent: chest pain, syncope, palpitations, irregular heart rate, lightheadedness , peripheral edema RESPIRATORY: Absent: cough, shortness of breath, dyspnea with exertion, orthopnea, wheezing, stridor, hemoptysis GASTROINTESTINAL: abdominal pain+ at surgical sites, nausea + Absent: abdominal distension, vomiting, diarrhea, constipation, melena, hematochezia GENITOURINARY: Absent: dysuria, frequency, urgency, hesitancy, hematuria, flank pain+ at nephrostomy wound site, genital pain MUSCULOSKELETAL: Absent: myalgia, arthralgia, joint swelling, back pain, neck pain SKIN: Absent: rash, itching, pallor HEMATOLOGIC/IMMUNOLOGIC: Absent: easy bleeding, easy bruising, lymphadenopathy, frequent infections ENDOCRINE: Absent: unexplained weight gain, unexplained weight loss, heat intolerance, cold intolerance NEUROLOGIC: Absent: headache, focal weakness or paresthesias, dizziness, unsteady gait, seizure, mental status changes, bladder or bowel incontinence PSYCHIATRIC: Absent: anxiety, depression, suicidal or homicidal ideation, hallucinations. PHYSICAL EXAMINATION Vital Signs - 24 hr 05/30/17 05/30/17 05/30/17 20:02 20:15 20:30 Temperature 99.3 F Pulse Rate 85 98 H 94 H Respiratory 14 18 16 Rate Blood Pressure 131/50 117/51 118/53 O2 Sat by Pulse 100 100 100 Oximetry (%) 05/30/17 05/30/17 05/30/17 20:45 21:00 21:15 Temperature Pulse Rate 91 H 93 H 91 H Respiratory 16 16 14 Rate Blood Pressure 110/59 105/51 110/52 O2 Sat by Pulse 100 100 100 Oximetry (%) 05/30/17 05/30/17 05/30/17 21:30 21:45 22:00 Temperature Pulse Rate 90 90 100 H Respiratory 16 16 20 Rate Blood Pressure 101/54 105/51 110/66 O2 Sat by Pulse 100 100 100 Oximetry (%) 05/30/17 05/30/17 05/30/17 22:15 23:00 23:25 Temperature 98.6 F 98.6 F Pulse Rate 86 102 H 99 H Respiratory 14 14 20 Rate Blood Pressure 117/56 83/58 111/62 O2 Sat by Pulse 96 96 Oximetry (%) 05/31/17 05/31/17 05/31/17 00:00 00:35 00:42 Temperature 98 F Pulse Rate 98 H 99 H Respiratory 20 20 20 Rate Blood Pressure 100/59 111/62 O2 Sat by Pulse Oximetry (%) 05/31/17 05/31/1717 02:00 04:00 06:00 Temperature 97.8 F Pulse Rate 100 H 98 H 95 H Respiratory 20 20 20 Rate Blood Pressure 100/52 100/59 98/53 O2 Sat by Pulse Oximetry (%) 05/31/17 05/31/17 05/31/17 08:43 09:00 09:20 Temperature 98 F Pulse Rate 90 90 Respiratory 18 18 Rate Blood Pressure 91/47 91/47 O2 Sat by Pulse 98 Oximetry (%) 05/31/17 10:36 Temperature Pulse Rate 93 H Respiratory Rate Blood Pressure O2 Sat by Pulse 96 Oximetry (%) GENERAL: Awake, alert, and fully oriented, in moderate painful distress. HEAD: Normal with no signs of trauma. EYES: Pupils equal, round and reactive to light, extraocular movements intact, sclera anicteric, conjunctiva clear. No lid lag. EARS, NOSE, THROAT: Ears normal, nares patent, oropharynx clear without exudates. Moist mucous membranes. NECK: Normal range of motion, supple without lymphadenopathy, JVD, or masses. LUNGS: Breath sounds equal, clear to auscultation bilaterally. No wheezes, and no crackles. No accessory muscle use. HEART: Regular rate and rhythm, normal S1 and S2 without murmur, rub or gallop. ABDOMEN: Soft, cystoscopy scars - in L and R LQs and periumbilical area, dressed horizontal incision wound seen in suprapubic area, tender, not distended , normoactive bowel sounds, guarding+, no rebound, no masses. No hepatomegaly or splenomegaly. MUSCULOSKELETAL: Normal range of motion at all joints. No bony deformities or tenderness. No CVA tenderness. UPPER EXTREMITIES: 2+ pulses, warm, well-perfused. No cyanosis. No clubbing. Cap refill <2 seconds. No peripheral edema. LOWER EXTREMITIES: 2+ pulses, warm, well-perfused. No calf tenderness. No peripheral edema. NEUROLOGICAL: Cranial nerves II-XII intact. Normal speech. Normal gait. PSYCHIATRIC: Cooperative. Good eye contact. Appropriate mood and affect. SKIN: Warm, dry, normal turgor, no rashes or lesions noted. Laboratory Results - last 24 hr 05/30/17 05/30/17 05/30/17 18:00 20:45 20:45 WBC 16.7 H D RBC 3.23 L D Hgb 9.5 L D Hct 27.6 L D MCV 85.4 MCH 29.3 MCHC 34.4 RDW 13.6 Plt Count 280 MPV 7.7 Neutrophils % 84.4 H Lymphocytes % 10.7 Monocytes % 4.4 Eosinophils % 0.4 Basophils % 0.1 Sodium 137 Potassium 4.2 Chloride 103 Carbon Dioxide 27 Anion Gap 7 L BUN 13 Creatinine 0.7 POC Glucometer Random Glucose 243 H D Calcium 8.2 L Blood Type A POSITIVE Antibody Screen Negative Crossmatch IS Only See Detail 05/31/17 05/31/17 05/31/17 07:02 07:02 12:11 WBC 10.5 H D RBC 3.17 L Hgb 9.2 L Hct 26.9 L MCV 84.8 MCH 29.2 MCHC 34.4 RDW 13.4 Plt Count 289 MPV 8.0 Neutrophils % 68.7 Lymphocytes % 14.2 D Monocytes % 16.8 H D Eosinophils % 0.1 Basophils % 0.2 Sodium 135 L Potassium 4.7 Chloride 99 Carbon Dioxide 29 Anion Gap 7 L BUN 12 Creatinine 0.8 POC Glucometer 270 Random Glucose 266 H Calcium 8.1 L Blood Type Antibody Screen Crossmatch IS Only Active Medications Generic Name Dose Route Start Last Admin Trade Name Freq PRN Reason Stop Dose Admin Atorvastatin Calcium 20 mg 05/31/17 22:00 Lipitor - PO HS BATSHEVA Diphenhydramine HCl 12.5 mg 05/30/17 20:13 Benadryl Injection - IVPUSH ONCE PRN FOR ITCHING Docusate Sodium 100 mg 05/30/17 20:11 Colace - PO TID PRN CONSTIPATION Hydromorphone HCl 2 mg 05/30/17 19:58 Dilaudid Injection - IM Q4H PRN PAIN Hydromorphone HCl 0 mg 05/30/17 20:15 05/31/17 07:46 Dilaudid Nut Threader - [employer] C[employer]IER 06/06/17 20:14 Not Given H[employer]IER BATSHEVA Protocol Hydromorphone HCl 2 mg 05/31/17 14:45 Dilaudid - PO Q8H PRN PAIN Cefazolin Sodium 1 gm/ 50 mls @ 100 mls/hr 05/31/17 02:00 05/31/17 09:19 Dextrose IVPB 100 mls/hr Q8H-IV BATSHEVA Administration Dextrose/Sodium Chloride 1,000 mls @ 125 mls/hr 05/30/17 20:00 05/31/17 01:59 D5-1/2ns - IV 125 mls/hr ASDIR BATSHEVA Administration Insulin Aspart 1 vial 05/31/17 16:30 Novolog Vial Sliding Scale - SQ ACHS BATSHEVA Protocol Lisinopril 5 mg 05/31/17 22:00 Prinivil PO HS BATSHEVA Promethazine HCl 12.5 mg 05/30/17 20:13 05/31/17 13:08 Phenergan Injection - IVPB 12.5 mg Q6H PRN Administration NAUSEA AND/OR VOMITING ASSESSMENT/PLAN: A 56 year old female with PMHx of DM, HTN, HLD, s/p laparoscopic hysterectomy with subsequent ureteronephrostomy, off DM medications for 11/06 and found to have hypergycemia of 270 today #T2DM with hyperglycemia Patient said her sugars had been controlled at home on tradjenta 5mg PO daily and glucophage 1000mg PO bid until she interrupted it for procedure No evidence of acidosis and no altered mental status Plan : Insulin Aspart sliding scale as directed BGM Diabetic diet UA BMP #HTN Resume Lisinopril 5mg daily #HLD: Resume atorvostatin 20mg daily Continue other management per primary team Dispo: We will continue to follow the patient. Thank you for this consultative opportunity. Visit type - Emergency Visit Emergency Visit: Yes ED Registration Date: 05/30/17 Care time: The patient presented to the Emergency Department on the above date and was hospitalized for further evaluation of their emergent condition. - New Patient This patient is new to me today: Yes Date on this admission: 05/31/17 - Critical Care Critical Care patient: No
[2017-05-31] MEDS: HYDROmorphone HCL 2 MG TABLET PO PRN (16:17)
[2017-05-31] MEDS: INSULIN SLIDING SCALE (NOVOLOG) 1 VIAL SQ SCH ×2 (17:17→21:18)
--- NOTE | 2017-05-31 20:43 | PN ---
Teaching Attending Note Name of Resident: Ethel Martinez ATTENDING PHYSICIAN STATEMENT I saw and evaluated the patient. I reviewed the resident's note and discussed the case with the resident. I agree with the resident's findings and plan as documented. SUBJECTIVE: Consulted for Diabetic management and HTN Patient is in moderate distress to having pain. Denies any shortness of breath, no nausea or vomiting. OBJECTIVE: Vital Signs Temperature 97.1 F L 05/31/17 16:20 Pulse Rate 95 H 05/31/17 16:20 Respiratory Rate 20 05/31/17 16:20 Blood Pressure 131/74 05/31/17 16:20 O2 Sat by Pulse Oximetry (%) 96 05/31/17 10:36 CBCD WBC 10.5 K/mm3 (4.0-10.0) H D 05/31/17 07:02 RBC 3.17 M/mm3 (3.60-5.2) L 05/31/17 07:02 Hgb 9.2 GM/dL (10.7-15.3) L 05/31/17 07:02 Hct 26.9 % (32.4-45.2) L 05/31/17 07:02 MCV 84.8 fl (80-96) 05/31/17 07:02 MCHC 34.4 g/dl (32.0-36.0) 05/31/17 07:02 RDW 13.4 % (11.6-15.6) 05/31/17 07:02 Plt Count 289 K/MM3 (134-434) 05/31/17 07:02 MPV 8.0 fl (7.5-11.1) 05/31/17 07:02 CMP Sodium 135 mmol/L (136-145) L 05/31/17 07:02 Potassium 4.7 mmol/L (3.5-5.1) 05/31/17 07:02 Chloride 99 mmol/L (98-107) 05/31/17 07:02 Carbon Dioxide 29 mmol/L (21-32) 05/31/17 07:02 Anion Gap 7 (8-16) L 05/31/17 07:02 BUN 12 mg/dL (7-18) 05/31/17 07:02 Creatinine 0.8 mg/dL (0.55-1.02) 05/31/17 07:02 Creat Clearance w eGFR > 60 (>60) 05/30/17 14:45 Random Glucose 266 mg/dL (74-106) H 05/31/17 07:02 Calcium 8.1 mg/dL (8.5-10.1) L 05/31/17 07:02 Total Bilirubin 0.4 mg/dL (0.2-1.0) D 05/30/17 14:45 AST 14 U/L (15-37) L D 05/30/17 14:45 ALT 20 U/L (12-78) 05/30/17 14:45 Alkaline Phosphatase 91 U/L (45-117) 05/30/17 14:45 Total Protein 8.1 g/dl (6.4-8.2) 05/30/17 14:45 Albumin 4.0 g/dl (3.4-5.0) 05/30/17 14:45 Current Medications Generic Name Dose Route Start Last Admin Trade Name Freq PRN Reason Stop Dose Admin Atorvastatin Calcium 20 mg 05/31/17 22:00 Lipitor - PO HS BATSHEVA Diphenhydramine HCl 12.5 mg 05/30/17 20:13 Benadryl Injection - IVPUSH ONCE PRN FOR ITCHING Docusate Sodium 100 mg 05/30/17 20:11 Colace - PO TID PRN CONSTIPATION Hydromorphone HCl 2 mg 05/30/17 19:58 Dilaudid Injection - IM Q4H PRN PAIN Hydromorphone HCl 2 mg 05/31/17 14:45 05/31/17 16:17 Dilaudid - PO 2 mg Q8H PRN Administration PAIN Cefazolin Sodium 1 gm/ 50 mls @ 100 mls/hr 05/31/17 02:00 05/31/17 17:17 Dextrose IVPB 100 mls/hr Q8H-IV BATSHEVA Administration Dextrose/Sodium Chloride 1,000 mls @ 125 mls/hr 05/30/17 20:00 05/31/17 20:05 D5-1/2ns - IV Not Given ASDIR BATSHEVA Insulin Aspart 1 vial 05/31/17 16:30 05/31/17 17:17 Novolog Vial Sliding Scale - SQ 6 units ACHS BATSHEVA Administration Protocol Lisinopril 5 mg 05/31/17 22:00 Prinivil PO HS BATSHEVA Promethazine HCl 12.5 mg 05/30/17 20:13 05/31/17 13:08 Phenergan Injection - IVPB 12.5 mg Q6H PRN Administration NAUSEA AND/OR VOMITING Home Medications Medication Instructions Recorded Atorvastatin Ca [Lipitor] 20 mg PO HS 05/15/17 Linagliptin [Tradjenta] 5 mg PO DAILY 05/15/17 Lisinopril 5 mg PO HS 05/15/17 Metformin HCl [Metformin HCl ER] 1,000 mg PO BID 05/15/17 Oxycodone HCl/Acetaminophen 1 tab PO Q4H #20 tablet MDD 6 05/23/17 [Percocet 5-325 mg Tablet -] Ibuprofen [Motrin -] 600 mg PO QID PRN #28 tablet 05/24/17 ASSESSMENT AND PLAN: The patient is a 56 year old female with PMHx of DM, HTN, HLD, s/p laparoscopic hysterectomy and bilat salpingectomy on 05/23 s/p Left ureter reimplant repair was found to have elevated Blood sugar of 270. # T2dm uncontrolled on sliding scale with coverage. # HTN controlled continue Lisinopril DVT px: SCDs, ear;y ambulation
[2017-05-31] MEDS ORDERED: ATORVASTATIN CA 20 MG TABLET (FP) PO SCH (22:00)
[2017-05-31] MEDS ORDERED: LISINOPRIL 5 MG TABLET (FP) PO SCH (22:00)
[2017-05-31 23:34] LABS: URINE APPEARANCE CLEAR; URINE BILIRUBIN NEGATIVE (NEGATIVE); URINE BLOOD 3+ (NEGATIVE); URINE COLOR STRAW; URINE GLUCOSE (UA) 3+ (NEGATIVE); URINE KETONE NEGATIVE (NEGATIVE); URINE LEUK ESTERASE NEGATIVE (NEGATIVE); URINE NITRITE NEGATIVE (NEGATIVE); URINE PROTEIN NEGATIVE (NEGATIVE); URINE UROBILINOGEN NEGATIVE mg/dL (0.2-1.0)
[2017-05-31 23:55] LABS: URINE BACTERIA RARE /hpf (NONE SEEN); URINE RBC 30 /hpf (0-3); URINE WBC 4 /hpf (3-5)
[2017-06-01] MEDS: CEFAZOLIN 1 GM in DEXTROSE 5%-WATER - 50 ML IVPB SCH ×2 (02:00→09:47)
[2017-06-01] MEDS: INSULIN SLIDING SCALE (NOVOLOG) 1 VIAL SQ SCH ×2 (06:01→11:54)
[2017-06-01 07:06] VITALS: PULSE 105
[2017-06-01 08:36] VITALS: BP 115/69
[2017-06-01] MEDS ORDERED: BISACODYL 10 MG SUPP.RECT RC ONE (09:15)
[2017-06-01] MEDS ORDERED: ceFAZolin SODIUM 1 GM VIAL ONE (09:18)
[2017-06-01] MEDS ORDERED: DEXTROSE 5%-WATER - 50 ML IVPB ONE (09:19)
[2017-06-01 09:46] VITALS: TEMP 98.2
[2017-06-01] MEDS: HYDROmorphone HCL 2 MG TABLET PO PRN (12:10)
== END 2017-06-01 13:16 | disposition home or self-care (01) | DRG 982 ==
LOC: JASU-SURG 14:30 → J8W 19:56 → JASU-SURG 23:05
PROVIDERS: ADMIT Urology; ATTEND Urology
PROC: 0T143JD Bypass Left Kidney Pelvis to Cutaneous with Synthetic Substitute, Percutaneous Approach (ICD-10-PCS; principal; 2017-05-29)
DX: T81.89XA Other complications of procedures, not elsewhere classified, initial encounter (principal); N13.1 Hydronephrosis with ureteral stricture, not elsewhere classified; E11.9 Type 2 diabetes mellitus without complications; I10 Essential (primary) hypertension; E78.5 Hyperlipidemia, unspecified; Z90.710 Acquired absence of both cervix and uterus; Y83.8 Other surgical procedures as the cause of abnormal reaction of the patient, or of later complication, without mention of misadventure at the time of the procedure; Y92.89 Other specified places as the place of occurrence of the external cause
CPT/HCPCS: 36415; 50389; 50431; 74425-TC; 80048; 80053; 81003; 81015; 85025; 85027; 86850; 86900; 86901; 86922; 94760

== ENCOUNTER 2017-07-09 11:25 | Day surgery (SDC) | payer BC ==
[2017-07-08 11:40] VITALS: BMI 23.0
--- NOTE | 2017-07-09 12:50 | HP ---
History & Physical Update - History History: No Change - Physical Physical: No Change - Assessment Assessment: No Change - Plan Plan: No Change
[2017-07-09] MEDS ORDERED: ACETAMINOPHEN 1000 MG/100 ML VIAL (NON FORMULARY) IVPB ONE ×2 (12:51→14:15)
[2017-07-09] MEDS ORDERED: IBUPROFEN 800 MG/8 ML IJ IVPB PRN (12:51)
[2017-07-09] MEDS ORDERED: PROPOFOL 20 ML ONE (12:56)
[2017-07-09] MEDS ORDERED: MIDAZOLAM HCL 2 MG/2 ML SINGLE DOSE VIAL ONE ×2 (12:58→13:34)
[2017-07-09] MEDS ORDERED: DESFLURANE GAS 240 ML BOTTLE IH ONE (12:58)
[2017-07-09] MEDS ORDERED: DEXTROSE 5%-0.45% SALINE 1,000 ML IV SCH (13:00)
[2017-07-09] MEDS ORDERED: ceFAZolin SODIUM 1 GM VIAL IVPB ONE (13:40)
[2017-07-09] MEDS ORDERED: ACETAMINOPHEN INJECTION 100 ML IVPB ONE (14:06)
[2017-07-09] MEDS ORDERED: ONDANSETRON 4 MG/2 ML VIAL IVPUSH PRN (14:10)
[2017-07-09] MEDS ORDERED: LACTATED RINGERS SOLUTION 1,000 ML IV SCH (14:15)
[2017-07-09 14:58] VITALS: TEMP 99.5
[2017-07-09 15:57] VITALS: BP 111/61; PULSE 94
--- NOTE | 2017-07-10 14:04 | OP ---
DATE OF OPERATION: 07/09/2017 PREOPERATIVE DIAGNOSIS: History of left ureteral injury, left ureteral implant. PROCEDURE: PROCEDURE: Cystoscopy, left retrograde pyelogram, removal of left ureteral stent. SURGEON: Florentino Landaverde MD ESTIMATED BLOOD LOSS: Minimal. SPECIMEN: The stent. PREOPERATIVE INDICATIONS: The patient is a 56-year-old female who underwent an abdominal hysterectomy, during which the left ureter was oversutured. She underwent a ureteroneocystostomy subsequently. She has done well since. She comes now for a cystoscopy, retrograde, and removal of stent. OPERATION: The patient was brought to the OR, placed on the table in the supine position. She was given general anesthesia and IV antibiotics and placed in the modified lithotomy position. The groin was prepped and draped sterilely, and a time-out was performed. Cystoscopy was performed. The bladder for the most part appeared to be unremarkable except for the area that was the area of the ureteral re-implant. This was observed, and a stent was seen emerging from the new ureteral orifice. The stent was brought out through the urethral meatus with the grasping forceps. A wire was passed up into the left kidney under fluoroscopic guidance. An open-ended catheter was then placed into the distal left urete. Retrograde pyelogram was normal. The contrast immediately was seen to drain to the bladder without any evidence of extravasation. The wire and the catheter were then removed. Bladder was emptied, and the patient was woken up. FLORENTINO LANDAVERDE M.D. [id number]
--- NOTE | 2017-07-11 09:24 | PATH ---
Surgical Pathology Report Patient Name: STANLEY SHEN [facility]. Rec. #: [id number] /Age/Gender: 1960 (Age: 56) / F Account: [id number] Location: [facility] Taken: 07/09/2017 Received: 07/10/2017 Reported: 07/11/2017 Physicians: Florentino Landaverde M.D. Specimen(s) Received LEFT URETERAL STENT Clinical History None given Final Diagnosis POLYMER CHEMIST, LEFT URETER, REMOVAL: URETERAL STENT (GROSS ONLY). Electronically Signed Addy Gibson M.D. Gross Description Received fresh labeled "left ureteral stent," is a 35 cm in length yellow-green, coiled portion of tubing, consistent with a ureteral stent. No soft tissue is present. No sections are submitted, gross only. 07/10/201707/10/2017
== END 2017-07-09 16:23 | disposition home or self-care (01) ==
LOC: JASU-SURG 11:25
PROVIDERS: ATTEND Urology
PROC: BT1FZZZ Fluoroscopy of Left Kidney, Ureter and Bladder (ICD-10-PCS; principal; 2017-07-09 13:00)
PROC: 0TP98DZ Removal of Intraluminal Device from Ureter, Via Natural or Artificial Opening Endoscopic (ICD-10-PCS; 2017-07-09 13:00)
DX: Z46.6 Encounter for fitting and adjustment of urinary device (principal)
CPT/HCPCS: 76000-TC; 88300-TC; 94760